=== PATIENT | female | born 1970 | race Caucasian/White ===

== ENCOUNTER → 2016-08-03 | Outpatient (REF) | payer BC ==
[~2016-08-03] MED LIST: /QUET10TA PO; ABIL1TAB5 PO; AMBI10TA PO; AMBI5TAB PO; ASPI1TAB PO; ATIV0.5T3 PO; ATIV1TAB7 PO; ATOR40TA PO; BIRTH CONTROL PILLS PO; CALC25TA PO; CALC600T21 PO; ESTR1TAB3 PO; FOLI1TAB86 PO; INVE6TAB2 PO; LATU20TA PO; LISI-542 PO; MULTCAP11 PO; PRE-TAB3 PO; PROV5TAB PO; Prenatal Vitamins PO; SERO200T PO; TRAZ25TA PO; VITA100T2 PO; VITAPRTA PO; VITMTA PO; ZOLO100T PO
== END ==
LOC: M SFHCWAGY 09:58
PROVIDERS: ATTEND Nurse Practitioner Women's Health
DX: Z12.4 Encounter for screening for malignant neoplasm of cervix (principal)

== ENCOUNTER → 2017-01-15 | Outpatient (CLI) | payer BC ==
[~2017-01-15] MED LIST changes: +ABIL10TA9 PO; -ABIL1TAB5 PO; -ATOR40TA PO; +ATOR40TA75 PO; -CALC600T21 PO; +CALC600T60 PO; -INVE6TAB2 PO; +INVE6TAB3 PO
--- NOTE | 2017-01-16 01:59 | REP ---
Clinical: Pain. Technique: AP, lateral, bilateral oblique and sunrise views of the right knee. Findings: Mild early osteoarthritic degenerative changes include cortical irregularity and subtle marginal spurring along the medial and lateral compartments as well as along the superior and lateral margins of the patella. [place] view demonstrates increased sclerosis along the posterior patellar surface along with minimal lateral compartment and patellofemoral joint space narrowing. No acute fracture dislocation. Small suprapatellar effusion cannot be excluded. Impression: Mild early osteoarthritic degenerative changes. Signed by Loyd Campbell MD 01/16/2017 01:51 A
== END ==
LOC: M RAD 17:24
PROVIDERS: ATTEND Family Medicine
DX: M17.12 Unilateral primary osteoarthritis, left knee (principal); M25.561 Pain in right knee

== ENCOUNTER 2017-03-24 19:43 | Emergency (ER) | payer BC ==
[2017-03-24] MEDS: AZITHROMYCIN 250 MG TAB PO ×2 (22:16→23:08)
[2017-03-24] MEDS: methylPREDNISolone INJ 125 MG/2 ML VIAL (J2930) IM (22:17)
[2017-03-24] MEDS: IPRATROPIUM 0.5MG/ALBUTEROL 2.5MG INH SOL UD 3ML (DUONEB)(J7620) NEB (22:56)
== END 2017-03-24 23:13 | disposition home or self-care (01) ==
LOC: M ED 19:43
DX: J18.9 Pneumonia, unspecified organism (principal); R05 Cough
CPT/HCPCS: J2930

== ENCOUNTER → 2017-10-18 | Outpatient (CLI) | payer BC | LOC: M WHC 11:23 | DX: Z12.31 Encounter for screening mammogram for malignant neoplasm of breast (principal); Z78.0 Asymptomatic menopausal state | CPT/HCPCS: 77067 ==

== ENCOUNTER → 2018-05-09 | Outpatient (REF) | payer BC ==
[~2018-05-09] MED LIST changes: +PROAAER10 INH; -PROV5TAB PO; +PROV5TAB2 PO; +SERO1TAB2 PO; +ZITHTAB PO
[2018-05-09 13:05] LABS: ALBUMIN 3.7 GM/DL (3.2-5.2); ALT/SGPT 22 U/L (12-78); BILIRUBIN,TOTAL 0.5 MG/DL (0.2-1.0); BLOOD UREA NITROGEN 11 MG/DL (7-18); CALCIUM LEVEL 8.8 MG/DL (8.5-10.1); CARBON DIOXIDE LEVEL 27 MEQ/L (21-32); CHLORIDE LEVEL 107 MEQ/L (98-107); CHOLESTEROL LEVEL 162 MG/DL (<200); CHOLESTEROL RISK RATIO 3.115 (<5); CREATININE FOR GFR 0.58 MG/DL (0.55-1.30); GLOMERULAR FILTRATION RATE > 60.0 (>51); GLUCOSE, FASTING 91 MG/DL (70-100); HDL CHOLESTEROL 52 MG/DL (>40); LDL CHOLESTEROL 97 MG/DL (<100); NON-HDL-C 110 MG/DL; POTASSIUM SERUM 5.1 MEQ/L (3.5-5.1); SODIUM LEVEL 141 MEQ/L (136-145); TOTAL PROTEIN 6.9 GM/DL (6.4-8.2); TRIGLYCERIDES LEVEL 67 MG/DL (<150)
[2018-05-09 13:52] LABS: HEMOGLOBIN A1c 5.5 %
== END ==
LOC: M LABDRAW1 09:38
PROVIDERS: ATTEND Student in an Organized Health Care Education/Training Program
DX: E78.00 Pure hypercholesterolemia, unspecified (principal); Z68.38 Body mass index [BMI] 38.0-38.9, adult

== ENCOUNTER → 2018-08-11 | Outpatient (CLI) | payer BC ==
[~2018-08-11] MED LIST changes: -/QUET10TA PO; -ASPI1TAB PO; +ASPI81TA26 PO; +SERO1TAB PO; +TRAZ1TAB6 PO; -TRAZ25TA PO
--- NOTE | 2018-08-11 19:03 | REP ---
LEFT KNEE, FIVE VIEWS: HISTORY: Knee pain. There is no acute fracture or dislocation. There is moderate narrowing of the medial knee joint space and mild narrowing of the lateral knee joint space and patellofemoral joint space. Osteophytes are present on the femur, tibia, and patella. IMPRESSION:Degenerative change as described above. Electronically Signed by Asif Medina MD 08/11/2018 07:09 P
== END ==
LOC: M WUC 18:09
PROVIDERS: ATTEND Physician Assistant
DX: M25.762 Osteophyte, left knee (principal); M17.12 Unilateral primary osteoarthritis, left knee; M25.562 Pain in left knee

== ENCOUNTER 2018-09-15 19:47 | Emergency (ER) | payer BC ==
[~2018-09-15] VITALS: Ht 167.6 cm; Wt 111.4 kg
[2018-09-15] MEDS ORDERED: PRED20TA PO (20:01)
[2018-09-15 20:58] LABS: HEMOGLOBIN 12.9 g/dl (12.0-15.5); MEAN CORPUSCULAR HEMOGLOBIN 28.6 pg (27.0-33.0); MEAN CORPUSCULAR HGB CONC 33.1 g/dl (32.0-36.5); MEAN CORPUSCULAR VOLUME 86.5 fl (80.0-96.0); PLATELET COUNT, AUTOMATED 211 10^3/uL (150-450); RED BLOOD COUNT 4.51 10^6/uL (4.00-5.40)
[2018-09-15 21:38] LABS: ACETAMINOPHEN LEVEL < 2.0 UG/ML (10.0-30.0); ALBUMIN 3.6 GM/DL (3.2-5.2); ALT/SGPT 26 U/L (12-78); BILIRUBIN,DIRECT 0.2 MG/DL (0.0-0.2); BILIRUBIN,TOTAL 0.6 MG/DL (0.2-1.0); BLOOD UREA NITROGEN 13 MG/DL (7-18); CALCIUM LEVEL 8.9 MG/DL (8.5-10.1); CARBON DIOXIDE LEVEL 25 MEQ/L (21-32); CHLORIDE LEVEL 106 MEQ/L (98-107); CREATININE FOR GFR 0.66 MG/DL (0.55-1.30); ETHYL ALCOHOL (ETHANOL) < 0.003 % (0.000-0.010); GLOMERULAR FILTRATION RATE > 60.0 (>51); GLUCOSE, FASTING 115 MG/DL (70-100); POTASSIUM SERUM 3.6 MEQ/L (3.5-5.1); SALICYLATE LEVEL < 1.7 MG/DL (5.0-30.0); SODIUM LEVEL 139 MEQ/L (136-145); TOTAL PROTEIN 7.1 GM/DL (6.4-8.2)
--- NOTE | 2018-09-15 23:06 | REPVR ---
EXAM: CT Head Without Contrast EXAM DATE/TIME: 09/15/2018 9:44 PM CLINICAL HISTORY: 48 years old, female; Signs and symptoms; Altered mental status/memory loss; Additional info: AMS TECHNIQUE: Imaging protocol: Axial computed tomography images of the head without contrast. Radiation optimization: All CT scans at this facility use at least one of these dose optimization techniques: automated exposure control; mA and/or kV adjustment per patient size (includes targeted exams where dose is matched to clinical indication); or iterative reconstruction. COMPARISON: MRI-Brain without Contrast 11/25/2012 3:07 PM FINDINGS: Brain: Normal. No hemorrhage. Unremarkable white matter. No mass effect. Ventricles: Normal. No ventriculomegaly. Bones/joints: Unremarkable. No acute fracture. Sinuses: Near-complete opacification of the sphenoid sinus. Mastoid air cells: Visualized mastoid air cells are well aerated. No mastoid effusion. Soft tissues: Unremarkable. IMPRESSION: No intracranial abnormality. Near-complete opacification of the right sphenoid sinus. Electronically signed by: Genesis Goodrich On 09/15/2018 23:06:29 PM
[2018-09-16 00:47] LABS: AMPHETAMINES LEVEL URINE NEGATIVE (NEGATIVE); BARBITURATES URINE NEGATIVE (NEGATIVE); BENZODIAZEPINES URINE NEGATIVE (NEGATIVE); CANNABINOIDS URINE NEGATIVE (NEGATIVE); COCAINE METABOLITE URINE NEGATIVE (NEGATIVE); METHADONE URINE NEGATIVE (NEGATIVE); OPIATES URINE NEGATIVE (NEGATIVE); PHENCYCLIDINE URINE NEGATIVE (NEGATIVE)
--- NOTE | 2018-09-16 06:04 | ECGEPIP ---
[facility] - ED Test Date: 2018-09-15 Pat Name: ANGELO MOROCHO Department: Room: - Gender: Female Order Packer: KK : [id number] Requested By: BEATRIZ Lira Order Number: [id number] Reading MD: Jose Sanders Measurements Intervals [place] Rate: 101 P: 58 NC: 162 QRS: 12 QRSD: 81 T: 36 QT: 336 QTc: 435 Interpretive Statements SINUS TACHYCARDIA RATE CHANGE COMPARED TO 12/30/14 Electronically Signed on 09-16-2018 6:04:16 EDT by Jose Sanders
[2018-09-16 08:45] VITALS: BP 136/64
== END 2018-09-16 08:51 ==
LOC: M ED 19:47
DX: F23 Brief psychotic disorder (principal); F25.9 Schizoaffective disorder, unspecified; Z79.899 Other long term (current) drug therapy; Z88.0 Allergy status to penicillin
CPT/HCPCS: 36415; 70450; 80048; 80076; 80307; 84443; 85027; 93005; 99284; G0480

== ENCOUNTER → 2018-11-11 | Outpatient (CLI) | payer BC ==
[~2018-11-11] MED LIST changes: +PRED20TA PO
--- NOTE | 2018-11-11 14:51 | REPMRS ---
Patient History The patient states she had a clinical breast exam in 10/2018. Patient is postmenopausal. No known family history of cancer. Took hormonal contraceptives for 9 years. Taking estrogen for 3 years 1 month. Taking progesterone for 3 years. Digital Woman Screen Mammo: November 11, 2018 - Exam #: [id number] Bilateral CC and MLO view(s) were taken. Technologist: Marilyn Davison, Technologist Prior study comparison: October 18, 2017, bilateral digital woman screen mammo performed at [facility]. August 03, 2015, digital woman screen mammo performed at [facility]. July 26, 2014, digital woman screen mammo performed at [facility]. FINDINGS: There are scattered fibroglandular densities. There has been no change in the appearance of the mammogram from the prior studies. There is a mild amount of scattered fibroglandular density which is fairly symmetric. There is no interval development of dominant mass, architectural distortion, or grouped microcalcification suggestive of malignancy. 3-D tomosynthesis shows no additional findings. Assessment: BI-RADS/ACR category 1 mammogram. Negative Mammogram. Recommendation Routine screening mammogram of both breasts in 1 year (for women over age 40). This patient's Lifetime Breast Cancer Risk is estimated at 9.6 %. This mammogram was interpreted with the aid of an FDA-approved computer-aided dectection system. Electronically Signed By: Yossi Leon MD 11/11/18 [id number]
== END ==
LOC: M WHC 13:41
PROVIDERS: ATTEND Nurse Practitioner Women's Health
DX: Z12.31 Encounter for screening mammogram for malignant neoplasm of breast (principal); Z78.0 Asymptomatic menopausal state; Z92.0 Personal history of contraception; Z92.23 Personal history of estrogen therapy; Z92.29 Personal history of other drug therapy

== ENCOUNTER → 2019-11-13 | Outpatient (CLI) | payer BC ==
[~2019-11-13] MED LIST changes: +SERO400T PO
--- NOTE | 2019-12-01 14:40 | REPMRS ---
Patient History The patient states she had a clinical breast exam in 10/2019. Patient is postmenopausal. No known family history of cancer. Took hormonal contraceptives for 9 years. Taking estrogen for 4 years 1 month. Taking progesterone for 4 years. Digital Woman Screen Mammo: November 13, 2019 - Exam #: [id number] Bilateral CC and MLO view(s) were taken. Technologist: Lawanda Benavidez, Technologist Prior study comparison: November 11, 2018, bilateral digital woman screen mammo performed at [facility]. October 18, 2017, bilateral digital woman screen mammo performed at [facility]. August 03, 2015, digital woman screen mammo performed at [facility]. FINDINGS: The breast tissue is almost entirely fat. The Volpara volumetric breast density category is: A. There has been no change in the appearance of the mammogram from the prior studies. There is no interval development of dominant mass, architectural distortion, or grouped microcalcification typical of malignancy. 3-D tomosynthesis shows no additional findings. Assessment: BI-RADS/ACR category 1 mammogram. Negative Mammogram. Recommendation Routine screening mammogram of both breasts in 1 year (for women over age 40). This patient's Lifetime Breast Cancer RIsk is estimated at 9.5 %. This mammogram was interpreted with the aid of an FDA-approved computer-aided dectection system. Electronically Signed By: Yossi Leon MD 12/01/19 [id number]
== END ==
LOC: M WHC 16:14
PROVIDERS: ATTEND Nurse Practitioner Women's Health
DX: Z12.31 Encounter for screening mammogram for malignant neoplasm of breast (principal); Z78.0 Asymptomatic menopausal state; Z79.899 Other long term (current) drug therapy

== ENCOUNTER → 2019-11-13 | Outpatient (REF) | payer BC | LOC: M SFHCWAGY 12:39 | PROVIDERS: ATTEND Nurse Practitioner Women's Health | DX: Z12.4 Encounter for screening for malignant neoplasm of cervix (principal) ==

== ENCOUNTER 2019-11-28 08:26 | Emergency (ER) | payer BC ==
[~2019-11-28] VITALS: Ht 167.6 cm; Wt 114.1 kg
[~2019-11-28 08:26] MED LIST changes: -SERO400T PO
[2019-11-28] MEDS ORDERED: SERO400T PO (08:35)
[2019-11-28 09:34] LABS: BASO % 0.6 % (0.0-1.0); EOS # 0.1 10^3/uL (0.0-0.5); EOS % 2.7 % (0.0-3.0); HEMATOCRIT 38.2 % (36.0-47.0); HEMOGLOBIN 12.5 g/dl (12.0-15.5); LYMPH # 1.1 10^3/uL (1.5-5.0); LYMPH % 23.3 % (24.0-44.0); MEAN CORPUSCULAR HEMOGLOBIN 28.7 pg (27.0-33.0); MEAN CORPUSCULAR HGB CONC 32.7 g/dl (32.0-36.5); MEAN CORPUSCULAR VOLUME 87.8 fl (80.0-96.0); MONO # 0.2 10^3/uL (0.0-0.8); MONO % 4.9 % (0.0-5.0); NEUTROPHILS # 3.3 10^3/uL (1.5-8.5); NEUTROPHILS % 68.1 % (36.0-66.0); PLATELET COUNT, AUTOMATED 187 10^3/uL (150-450); RED BLOOD COUNT 4.35 10^6/uL (4.00-5.40); WHITE BLOOD COUNT 4.9 10^3/uL (4.0-10.0)
[2019-11-28 09:49] LABS: BLOOD UREA NITROGEN 15 MG/DL (7-18); CALCIUM LEVEL 8.6 MG/DL (8.5-10.1); CARBON DIOXIDE LEVEL 27 MEQ/L (21-32); CHLORIDE LEVEL 112 MEQ/L (98-107); GLOMERULAR FILTRATION RATE > 60.0 (>51); GLUCOSE, FASTING 127 MG/DL (70-100); POTASSIUM SERUM 3.8 MEQ/L (3.5-5.1); SODIUM LEVEL 143 MEQ/L (136-145)
--- NOTE | 2019-11-28 09:51 | REPVR ---
PROCEDURE INFORMATION: Exam: US Duplex Left Lower Extremity Veins, Limited Exam date and time: 11/28/2019 9:39 AM Age: 49 years old Clinical indication: Pain; Leg, lower; Left; Additional info: L calf pain, R/O dvt TECHNIQUE: Imaging protocol: Real-time Duplex ultrasound of the Left Lower Extremity with 2-D bender scale, color Doppler flow and spectral waveform analysis with image documentation. Limited exam focused on the left lower extremity veins. COMPARISON: No relevant prior studies available. FINDINGS: Left deep veins: Unremarkable. The common femoral, femoral, popliteal and tibioperoneal trunk veins are patent without thrombus. Normal Doppler waveforms. Normal compressibility and/or augmentation response. Left superficial veins: Unremarkable. Saphenofemoral junction is patent without thrombus. Soft tissues: Unremarkable. IMPRESSION: No evidence of deep vein thrombosis in the left lower extremity. Electronically signed by: Terrell Taylor On 11/28/2019 09:51:38 AM
[2019-11-28 09:53] LABS: ERYTHROCYTE SEDIMENTATION RATE 29 mm/hr (0-30)
[2019-11-28 11:43] VITALS: BP 151/74
--- NOTE | 2019-12-29 09:07 | REP ---
LEFT KNEE RADIOGRAPH SERIES: HISTORY: Left knee pain. TECHNIQUE: AP, lateral, bilateral oblique and sunrise views of the left knee. FINDINGS: Advanced tricompartmental osteoarthritic degenerative changes are appreciated. No acute fracture or dislocation. Soft tissue swelling is suggested. A small suprapatellar effusion cannot be excluded. IMPRESSION: Advanced tricompartmental osteoarthritic degenerative changes and possible small effusion. No acute fracture or dislocation. MTDD
== END 2019-11-28 11:54 | disposition home or self-care (01) ==
LOC: M ED 08:26
DX: G56.03 Carpal tunnel syndrome, bilateral upper limbs (principal); M19.012 Primary osteoarthritis, left shoulder; R20.2 Paresthesia of skin; M17.12 Unilateral primary osteoarthritis, left knee; F31.9 Bipolar disorder, unspecified; F20.9 Schizophrenia, unspecified; Z88.0 Allergy status to penicillin; Z79.899 Other long term (current) drug therapy; Z79.890 Hormone replacement therapy

== ENCOUNTER 2020-04-18 19:40 | Emergency (ER) | payer BC ==
[~2020-04-18] VITALS: Ht 167.6 cm; Wt 114.2 kg
[~2020-04-18 19:40] MED LIST changes: -LISI-542 PO; +LISI-898 PO; +SERO400T PO
--- OUTSIDE RECORDS SUMMARY | 2020-04-18 19:48 | CCD ---
Author Author [facility] Organization [facility] Address Unknown Phone Unavailable Care Team Providers Care Supervisor Major Appliance Assembly Name Role Phone STEVEN, [email or web address] Unavailable Unavailable Re-disclosure Warning The records that you are about to access may contain information from federally-assisted alcohol or drug abuse programs. If such information is present, then the following federally mandated warning applies: This information has been disclosed to you from records protected by federal confidentiality rules (42 CFR part 2). The federal rules prohibit you from making any further disclosure of this information unless further disclosure is expressly permitted by the written consent of the person to whom it pertains or as otherwise permitted by 42 CFR part 2. A general authorization for the release of medical or other information is NOT sufficient for this purpose. The Federal rules restrict any use of the information to criminally investigate or prosecute any alcohol or drug abuse patient.The records that you are about to access may contain highly sensitive health information, the redisclosure of which is protected by Article 27-F of the [facility] Public Health law. If you continue you may have access to information: Regarding HIV / AIDS; Provided by facilities licensed or operated by the [facility] Office of Mental Health; or Provided by the [facility] Office for People With Developmental Disabilities. If such information is present, then the following [facility] mandated warning applies: This information has been disclosed to you from confidential records which are protected by state law. State law prohibits you from making any further disclosure of this information without the specific written consent of the person to whom it pertains, or as otherwise permitted by law. Any unauthorized further disclosure in violation of state law may result in a fine or fpc sentence or both. A general authorization for the release of medical or other information is NOT sufficient authorization for further disc losure. Family History Family Member Name Family Member Gender Family Member Status Date o f Status Description Data Source(s) Unknown Unknown Problem [facility]ENT ([facility]) Encounters Encounter Providers Location Date Indications Data Source(s ) Unknown [address] [facility], [facility] [address] 03/07/2020 12:00:00 AM EST eCW1 ([facility]ly [facility]) [facility] [address] [place] [phone] 11/13/2019 12:00:00 AM EDT eCW1 ([facility]) Outpatient Attender: [email or web address] [facility] 09/08/2019 07:43:52 PM EDT [facility] Insurance Providers Payer name Policy type / Coverage type Policy ID Covered democrat ID Covered democrat's relationship to morales Policy Morales Plan Information [place] 332/834 [id number] SP [id number] [place]/307 [id number] SP [id number] [place]LLUS BCBS B [id number] S PYN [id number] [place] 332/834 [id number] SP [id number] [place] 302/307 [id number] SP [id number] [place] BCBS B [id number] S PYN [id number] [place] 332/834 [id number] SP [id number] ANSI-Commercial [id number] BS [place] Commercial [id number] Self [id number] SELF PAY BLUE CROSS [id number] SP [id number] SELF PAY SELF PAY SELF PAY BLUE CROSS [id number] SP [id number] SELF PAY SELF PAY SELF PAY SELF PAY SELF PAY SELF PAY SELF PAY SELF PAY [place]/307 [id number] SP [id number] [place] 302/307 [id number] SP [id number] BCBS/Blue Card Commercial [id number] Self P [id number] BCBS/Blue Card Commercial [id number] Self P [id number] ANSI-Commercial [id number] ANSI-Commercial [id number] ANSI-Commercial [id number] ANSI-Commercial [id number] BCBS/Blue Card Commercial [id number] Self P [id number] EXCELLUS BCBS B [id number] S PYN [id number] [place] 302/307 [id number] SP [id number] EXCELLUS BCBS B [id number] S PYN [id number] [place] 332/834 [id number] SP [id number] [place] PPO 302/307 [id number] SP [id number] BCBS/Blue Card Commercial [id number] Self P [id number] [place] 130/630 [id number] SP [id number] [facility] [id number] SP [id number] VALUE OPTIONS (MVP) [id number] SP [id number] [facility] [id number] SP [id number] VALUE OPTIONS (MVP) [id number] SP [id number] [facility] [id number] SP [id number] [facility] [id number] SP [id number] [facility] [id number] SP [id number] VALUE OPTIONS (MVP) [id number] SP [id number] [facility] [id number] SP [id number] MVP H [id number] Self [id number] 400
--- OUTSIDE RECORDS SUMMARY | 2020-04-18 19:48 | CCD ---
Author Author [facility] Organization [facility] Address Unknown Phone Unavailable Care Team Providers Care Outcomes Manager Name Role Phone Ananda Quevedo Unavailable PROBLEMS Type Condition ICD9-CM Code MFV72-OV Code Onset Dates Condition S tatus SNOMED Code Notes Problem Major depression, recurrent F33.9 Active 6634 4007 Problem Surveillance of other previously prescribed cont raceptive method Z30.49 Active 714119507 Problem Other and unspecified hyperlipidemia E78.5 Act kalani 40233757 Problem Anxiety state F41.1 Active 176153536 Problem Obesity (BMI 30-39.9) E66.9 Active 257881027 Problem Essential hypertension I10 Active 66364569 Problem Symptomatic menopausal or female climacteric states N95.1 Active 06008326 Problem Mild dysplasia of cervix (SOL I) N87.0 Active 172721151 Problem Obesity (BMI 35.0-39.9 without comorbidity) E66.01 Active 342772908 Problem Stress at home F43.9 Active 128951933 Problem Hypercholesterolemia E78.00 Active 43220853 Problem Tendinitis of radial styloid M77.8 Active 217 90565 Problem Osteoarthritis of both knees, unspecified osteoarthritis t ype M17.0 Active 820797945754395 Problem Schizoaffective disorder, depressive type F25.1 Active 59722244 Problem Obesity, unspecified E66.9 Active 139753079 Problem Body mass index (BMI) of 38.0-38.9 in adult Z68.38 Active 542419253 Problem Bipolar depression F31.30 Active 478657561 Problem Body mass index 39.0-39.9, adult Z68.39 Active 078309641 ALLERGIES Allergen (clinical drug ingredient) Drug/Non Drug Allergy do cumented on EMR Reaction Allergy Type Onset Date Status Penicillin (For Allergies Use Only) Rash Drug Allerg y Active ENCOUNTERS from 1970 to 2020-03-30 Encounter Location Date Provider Diagnosis [facility] [place] [address] Mar, Ananda Quevedo IMMUNIZATIONS Vaccine Route Administration Date Status Influenza (6mo & up) Fluzone Unknown Jan 29, 2017 Ot ers Influenza (6mo & up) Fluzone Unknown Jan 12, 2016 Ot ers SOCIAL HISTORY Tobacco Use: Social History Observation Description Date Details (start date - stop date) Never Smoker Sex Assigned At : Social History Observation Description Sex Assigned At Unknown Education: Question Answer Notes Level of Education: High School Sexual Hx: Question Answer Notes Had sex in the last 12 months (vaginal, oral, or anal)? Yes LMP: post menopause Have you ever had an STD? No with Men only Use protection? No Alcohol Screening: Question Answer Notes Did you have a drink containing alcohol in the past year? No Points 0 Interpretation Negative BMI Care Goal Follow-Up Question Answer Notes Above Normal BMI Follow-Up Lifestyle education regarding t Tobacco Use: Question Answer Notes Are you a: never smoker never smoker REASON FOR REFERRAL No Information VITAL SIGNS No information MEDICATIONS Medication SIG (Take, Route, Frequency, Duration) Notes Start Da te End Date Status Provera 5 MG 1 tablet Orally Once a day for 30 Not-Taking Estrace 1 MG 1 tablet Orally daily for 30 day(s) Active Provera 5 MG 1 tablet Orally Once a day for 30 day(s) Active SEROquel 400 MG 1 tablet at bedtime Orally Once a day Active MedroxyPROGESTERone Acetate 10 MG 1 tablet with food Orally Once a da y Active Estrace 1 MG 1 tablet Orally daily for 30 Not-Taking Zoloft 100 MG 2 tablets Orally Once a day (Mental health) Active Lipitor 40 MG 1 tablet Orally qhs for 30 Active Omeprazole 20 MG 1 capsule Orally Once a day for 30 day(s) Sep, Not-Taking Multivitamins - 1 tablet Orally Once a day Active Meloxicam 15 MG 1 capsule Orally Once a day Not-Taking Estradiol 1 mg 1 tablet Orally Once a day Active Calcium 600 + D 600-400 MG-UNIT 1 tablet Orally Once a day for 30 day (s) Active LORazepam 1 MG 1 tablet at bedtime as needed Orally Once a day Not-Taking PROCEDURES No Information RESULTS No Results REASON FOR VISIT Colorectal Cancer Screening Referral MEDICAL (GENERAL) HISTORY Type Description Date Medical History SOL I, LSIL Medical History Depression Medical History Hypertension Medical History Hyperlipidemia Medical History Morbid Obesity Medical History Anxiety Medical History Schizoaffective disorder Medical History Major depressive disorder Medical History ASCVD 1.6% as of 05/2014 Surgical History eye surgery - for strabismus as baby Surgical History D&C x 2 - miscarriage 1993 Hospitalization History Depression with psychotic features 2 010 Hospitalization History mood disorder 11/2012 Hospitalization History depression 06/02/2014 Hospitalization History [facility] health 08/2018 Goals Section No Information Health Concerns No Information MEDICAL EQUIPMENT No Information MENTAL STATUS No Information FUNCTIONAL STATUS No Information ASSESSMENTS No Information PLAN OF TREATMENT Medication Medication Name Sig Start Date Stop Date Estrace 1 MG 1 tablet Orally daily for 30 day(s) Provera 5 MG 1 tablet Orally Once a day for 30 day(s) Lipitor 40 MG 1 tablet Orally qhs for 30 Insurance Providers Payer Name Payer Address Payer Phone Insured Name Patient Relati onship to Insured Coverage Start Date Coverage End Date BCBS [facility] [phone] [place] [id number] ANGELO MOROCHO
--- NOTE | 2020-04-18 21:48 | REPVR ---
PROCEDURE INFORMATION: Exam: US Duplex Left Lower Extremity Veins, Limited Exam date and time: 04/18/2020 9:33 PM Age: 49 years old Clinical indication: Pain; Leg, upper; Left; Additional info: Left leg pain x4 weeks TECHNIQUE: Imaging protocol: Real-time Duplex ultrasound of the Left Lower Extremity with 2-D bender scale, color Doppler flow and spectral waveform analysis with image documentation. Limited exam focused on the left lower extremity veins. COMPARISON: US Duplex, Ext,LOWER veins,unilat 11/28/2019 9:24 AM FINDINGS: Left deep veins: Unremarkable. The common femoral, femoral, proximal profunda femoral and popliteal veins are patent without thrombus. Normal Doppler waveforms. Normal compressibility and/or augmentation response. Left superficial veins: Unremarkable. Saphenofemoral junction is patent without thrombus. Soft tissues: Unremarkable. IMPRESSION: No evidence of deep vein thrombosis. Electronically signed by: Jan Esparza On 04/18/2020 21:47:21 PM
--- OUTSIDE RECORDS SUMMARY | 2020-04-18 21:53 | CCD ---
Author Author [facility] Organization [facility] Address Unknown Phone Unavailable Care Team Providers Care Detective Precinct Name Role Phone STEVEN, [email or web address] Unavailable Unavailable [...] by Article 27-F of the [facility] Public Health law. If you continue you may have access to information: Regarding HIV / AIDS; Provided by facilities licensed or operated by the [facility] Office of Mental Health; or Provided by the [facility] Office for People With Developmental Disabilities. If such information is present, then the following [facility] mandated warning applies: This information has [...] law may result in a fine or halfway sentence or both. A general authorization for the release of medical or other information is NOT sufficient authorization for further disc losure. Family History Family Member Name Family Member Gender Family Member Status Date o f Status Description Data Source(s) Unknown Unknown Problem MEDENT ([facility]) Encounters Encounter Providers Location Date Indications Data Source(s ) Unknown [address] [facility], [facility] [address] 03/07/2020 12:00:00 AM EST eCW1 ([facility]) [facility] [address] [place] [phone] 11/13/2019 12:00:00 AM EDT eCW1 ([facility]) Outpatient Attender: [email or web address] [facility] 09/08/2019 07:43:52 PM EDT [facility] Insurance Providers Payer name Policy type / Coverage type Policy ID Covered green party ID Covered green party's relationship to morales Policy Morales Plan Information [employer] [place] 332/834 [id number] SP [id number] [place] 302/307 [id number] SP [id number] EXCELLUS BCBS B [id number] S PYN [id number] [place] 332/834 [id number] SP [id number] [place] PPO 302/307 [id number] SP [id number] EXCELLUS BCBS B [id number] S PYN [id number] [place] 332/834 [id number] SP [id number] ANSI-Commercial [id number] BS [place] Commercial [id number] Self [id number] SELF PAY BLUE CROSS [id number] SP [id number] SELF PAY SELF PAY SELF PAY BLUE CROSS [id number] SP [id number] SELF PAY SELF PAY SELF PAY SELF PAY SELF PAY SELF PAY SELF PAY SELF PAY [place] PPO 302/307 [id number] SP [id number] [place] PPO 302/307 [id number] SP [id number] BCBS/Blue Card Commercial [id number] Self P [id number] BCBS/Blue Card Commercial [id number] Self P [id number] ANSI-Commercial [id number] ANSI-Commercial [id number] ANSI-Commercial [id number] ANSI-Commercial [id number] BCBS/Blue Card Commercial [id number] Self P [id number] EXCELLUS BCBS B [id number] S PYN [id number] [place] PPO 302/307 [id number] SP [id number] EXCELLUS BCBS B [id number] S PYN [id number] [place] 332/834 [id number] SP [id number] [place] PPO 302/307 [id number] SP [id number] BCBS/Blue Card Commercial [id number] Self P [id number] [place] 130/630 [id number] SP [id number] [facility] [id number] SP [id number] VALUE OPTIONS (MVP) [id number] SP [id number] [facility] [id number] SP [id number] [employer] OPTIONS (MVP) [id number] SP [id number] [facility] [id number] SP [id number] [facility] [id number] SP [id number] [facility] [id number] SP [id number] VALUE OPTIONS (MVP) [id number] SP [id number] [facility] [id number] SP [id number] MVP H [id number] Self [id number] 400
[2020-04-18 22:30] VITALS: BP 157/87
== END 2020-04-18 22:38 | disposition home or self-care (01) ==
LOC: M ED 19:40
DX: R22.42 Localized swelling, mass and lump, left lower limb (principal); I10 Essential (primary) hypertension; E78.5 Hyperlipidemia, unspecified; F41.9 Anxiety disorder, unspecified; Z79.899 Other long term (current) drug therapy; Z88.0 Allergy status to penicillin

== ENCOUNTER 2020-04-25 09:06 | Emergency (ER) | payer BC ==
[~2020-04-25] VITALS: Ht 167.6 cm; Wt 111.4 kg
[2020-04-25 10:01] LABS: BASO % 0.5 % (0.0-1.0); EOS # 0.1 10^3/uL (0.0-0.5); EOS % 1.2 % (0.0-3.0); HEMATOCRIT 39.4 % (36.0-47.0); HEMOGLOBIN 12.7 g/dl (12.0-15.5); LYMPH # 1.1 10^3/uL (1.5-5.0); LYMPH % 18.8 % (24.0-44.0); MEAN CORPUSCULAR HEMOGLOBIN 28.6 pg (27.0-33.0); MEAN CORPUSCULAR HGB CONC 32.2 g/dl (32.0-36.5); MEAN CORPUSCULAR VOLUME 88.7 fl (80.0-96.0); MONO # 0.3 10^3/uL (0.0-0.8); MONO % 4.6 % (0.0-5.0); NEUTROPHILS # 4.4 10^3/uL (1.5-8.5); NEUTROPHILS % 74.6 % (36.0-66.0); PLATELET COUNT, AUTOMATED 193 10^3/uL (150-450); RED BLOOD COUNT 4.44 10^6/uL (4.00-5.40); WHITE BLOOD COUNT 5.9 10^3/uL (4.0-10.0)
--- NOTE | 2020-04-25 10:12 | REP ---
INDICATION: CHEST PAIN COMPARISON: 03/24/2017 TECHNIQUE: Portable AP view of the chest FINDINGS: The mediastinum and cardiac silhouette are stable and within normal limits for portable technique. The lung padilla are clear without acute consolidation, effusion, or pneumothorax. Skeletal structures are intact. IMPRESSION: No acute cardiopulmonary process appreciated. <Electronically signed by Loyd Campbell > 04/25/20 [id number]
[2020-04-25 10:44] LABS: BLOOD UREA NITROGEN 10 MG/DL (7-18); CARBON DIOXIDE LEVEL 26 MEQ/L (21-32); CHLORIDE LEVEL 106 MEQ/L (98-107); CREATININE FOR GFR 0.67 MG/DL (0.55-1.30); GLOMERULAR FILTRATION RATE > 60.0 (>51); GLUCOSE, FASTING 143 MG/DL (70-100); POTASSIUM SERUM 4.7 MEQ/L (3.5-5.1); SODIUM LEVEL 142 MEQ/L (136-145)
[2020-04-25 10:45] LABS: ALT/SGPT 23 U/L (12-78); BILIRUBIN,DIRECT < 0.1 MG/DL (0.0-0.2); BILIRUBIN,TOTAL 0.4 MG/DL (0.2-1.0); CALCIUM LEVEL 9.4 MG/DL (8.5-10.1); CK-MB VALUE MASS < 1.0 NG/ML (<3.6); CPK CREATINE PHOSPHOKINASE 140 U/L (26-192); MB/CK RELATIVE INDEX 0.71 (< OR =4); NT-PRO BNP 62 PG/ML (<125); TOTAL PROTEIN 7.2 GM/DL (6.4-8.2); TROPONIN I < 0.02 NG/ML (< 0.10)
[2020-04-25] MEDS ORDERED: MECLIZINE 25 MG TABLET PO ONE (11:00)
[2020-04-25] MEDS ORDERED: NS 1,000 ML IV ONE (11:00)
--- NOTE | 2020-04-25 11:29 | REP ---
INDICATION: dizzy COMPARISON: 09/15/2018 TECHNIQUE: Axial noncontrast images from the skull base to the vertex with coronal reformations. This CT examination was performed using the following dose reduction techniques: Automated exposure control, adjustment of mA and/or kv according to the patient's size, and use of iterative reconstruction technique. FINDINGS: The ventricles, sulci, and cisterns are normal in position and appearance. [place]-white differentiation is maintained. No acute intracranial hemorrhage, mass/mass effect, pathology or trauma/injury. No evidence for acute infarction. No extra-axial fluid collection. Calvarium is intact. Paranasal sinuses and mastoid air cells are clear. IMPRESSION: Normal noncontrast head CT. No evidence for acute intracranial pathology or trauma/injury. <Electronically signed by Loyd Campbell > 04/25/20 [id number]
[2020-04-25 14:05] VITALS: BP 144/70
--- NOTE | 2020-04-27 14:21 | ECGEPIP ---
[facility] - ED Test Date: 2020-04-25 Pat Name: ANGELO MOROCHO Department: Room: - Gender: Female Radio Director: : 1970 Requested By: Hugo Vivas Order Number: [id number] Reading MD: Tesha Dalal Measurements Intervals [place] Rate: 72 P: 46 SC: 173 QRS: 5 QRSD: 78 T: 32 QT: 389 QTc: 427 Interpretive Statements SINUS RHYTHM LOW QRS VOLTAGE IN PRECORDIAL LEADS DECREASED RATE 09/15/18 Electronically Signed on 04-27-2020 14:20:51 EST by Tesha Dalal
== END 2020-04-25 14:07 | disposition home or self-care (01) ==
LOC: M ED 09:06
DX: R42 Dizziness and giddiness (principal); Z78.0 Asymptomatic menopausal state; Z88.0 Allergy status to penicillin

== ENCOUNTER → 2020-05-04 | Outpatient (CLI) | payer BC ==
--- NOTE | 2020-05-04 13:11 | REPPI ---
INDICATION: M25.562 PAIN IN LEFT KNEE COMPARISON: None. TECHNIQUE: AP, lateral, bilateral oblique and sunrise views. FINDINGS: Early advanced tricompartmental osteoarthritic degenerative changes include subchondral sclerosis, joint space narrowing, cortical irregularities and osteophytosis lateral view cannot exclude small effusion. No evidence for acute fracture or dislocation. IMPRESSION: Early advanced tricompartmental osteoarthritic degenerative changes. No obvious acute fracture or dislocation. <Electronically signed by Loyd Campbell > 05/04/20 [id number]
== END ==
LOC: M PLAIMG 09:11
PROVIDERS: ATTEND Student in an Organized Health Care Education/Training Program
DX: M17.12 Unilateral primary osteoarthritis, left knee (principal); M25.562 Pain in left knee

== ENCOUNTER → 2020-11-28 | Outpatient (REF) | payer BC | LOC: M SFHCWAGY 16:40 | PROVIDERS: ATTEND Nurse Practitioner Women's Health | DX: Z12.4 Encounter for screening for malignant neoplasm of cervix (principal) ==

== ENCOUNTER → 2020-11-29 | Outpatient (CLI) | payer BC ==
--- NOTE | 2020-11-29 14:46 | REPMRS ---
Patient History The patient states she had a clinical breast exam in October 2020. Patient is postmenopausal. No known family history of cancer. Took hormonal contraceptives for 9 years. Taking estrogen for 5 years 1 month. Taking progesterone for 5 years. Patient states no breast complaints today. Patient has signed MRS History Sheet. Digital Woman Screen Mammo: November 29, 2020 - Exam #: [id number] Bilateral CC and MLO view(s) were taken. Technologist: Lawanda Benavidez, Technologist Prior study comparison: November 13, 2019, bilateral digital woman screen mammo performed at [facility]. November 11, 2018, bilateral digital woman screen mammo performed at [facility]. October 18, 2017, bilateral digital woman screen mammo performed at [facility]. FINDINGS: The breast tissue is almost entirely fat. The Volpara volumetric breast density category is: A. There has been no change in the appearance of the mammogram from the prior studies. There is no interval development of dominant mass, architectural distortion, or grouped microcalcification typical of malignancy. 3-D tomosynthesis shows no additional findings. Assessment: BI-RADS/ACR category 1 mammogram. Negative Mammogram. Recommendation Routine screening mammogram of both breasts in 1 year (for women over age 40). This patient's [facility] Lifetime Breast Cancer RIsk is estimated at 9.3 %. This mammogram was interpreted with the aid of an FDA-approved computer-aided dectection system. Electronically Signed By: Yossi Leon MD 11/29/20 [id number]
== END ==
LOC: M WHC 13:03
PROVIDERS: ATTEND Nurse Practitioner Women's Health
DX: Z12.31 Encounter for screening mammogram for malignant neoplasm of breast (principal)

== ENCOUNTER 2021-07-09 09:06 | Emergency (ER) | payer BC ==
[~2021-07-09] VITALS: Ht 167.6 cm; Wt 116.0 kg
[~2021-07-09 09:06] MED LIST changes: -LISI-898 PO; +LISI5TAB11 PO
[2021-07-09] MEDS ORDERED: LORazepam 1 MG TAB PO STA (10:03)
[2021-07-09 10:34] LABS: BASO % 0.4 % (0.0-1.0); EOS # 0.1 10^3/uL (0.0-0.5); EOS % 1.7 % (0.0-3.0); HEMATOCRIT 38.4 % (36.0-47.0); HEMOGLOBIN 12.6 g/dl (12.0-15.5); LYMPH # 1.2 10^3/uL (1.5-5.0); LYMPH % 15.1 % (24.0-44.0); MEAN CORPUSCULAR HEMOGLOBIN 28.5 pg (27.0-33.0); MEAN CORPUSCULAR HGB CONC 32.8 g/dl (32.0-36.5); MEAN CORPUSCULAR VOLUME 86.9 fl (80.0-96.0); MONO # 0.4 10^3/uL (0.0-0.8); MONO % 4.5 % (2.0-8.0); NEUTROPHILS % 77.4 % (36.0-66.0); PLATELET COUNT, AUTOMATED 203 10^3/uL (150-450); RED BLOOD COUNT 4.42 10^6/uL (4.00-5.40); WHITE BLOOD COUNT 7.8 10^3/uL (4.0-10.0)
[2021-07-09 10:57] LABS: HCG, SERUM QUALITATIVE NEGATIVE (NEGATIVE)
[2021-07-09 11:04] LABS: ACETAMINOPHEN LEVEL < 2.0 UG/ML (10.0-30.0); ALT/SGPT 28 U/L (12-78); BILIRUBIN,DIRECT 0.1 MG/DL (0.0-0.2); BILIRUBIN,TOTAL 0.4 MG/DL (0.2-1.0); BLOOD UREA NITROGEN 11 MG/DL (7-18); CALCIUM LEVEL 8.8 MG/DL (8.5-10.1); CARBON DIOXIDE LEVEL 27 MEQ/L (21-32); CHLORIDE LEVEL 107 MEQ/L (98-107); CREATININE FOR GFR 0.71 MG/DL (0.55-1.30); ETHYL ALCOHOL (ETHANOL) 0.003 % (0.000-0.010); FREE T4 0.94 NG/DL (0.76-1.46); GLOMERULAR FILTRATION RATE > 60.0 (>51); GLUCOSE, FASTING 111 MG/DL (70-100); LIPASE 143 U/L (73-393); NT-PRO BNP 159 PG/ML (<125); POTASSIUM SERUM 3.8 MEQ/L (3.5-5.1); SALICYLATE LEVEL < 1.7 MG/DL (5.0-30.0); SODIUM LEVEL 143 MEQ/L (136-145); TOTAL PROTEIN 7.2 GM/DL (6.4-8.2)
[2021-07-09 12:40] LABS: AMPHETAMINES LEVEL URINE NEGATIVE (NEGATIVE); BARBITURATES URINE NEGATIVE (NEGATIVE); BENZODIAZEPINES URINE NEGATIVE (NEGATIVE); CANNABINOIDS URINE NEGATIVE (NEGATIVE); COCAINE METABOLITE URINE NEGATIVE (NEGATIVE); METHADONE URINE NEGATIVE (NEGATIVE); OPIATES URINE NEGATIVE (NEGATIVE); PHENCYCLIDINE URINE NEGATIVE (NEGATIVE)
[2021-07-09] MEDS ORDERED: BACT800T5 PO (13:29)
[2021-07-09] MEDS ORDERED: BACTRIM 160MG/800MG DS TAB PO ONE (13:30)
[2021-07-09 14:01] VITALS: BP 152/74
== END 2021-07-09 14:06 | disposition home or self-care (01) ==
LOC: M ED 09:06
DX: J32.9 Chronic sinusitis, unspecified (principal); E78.9 Disorder of lipoprotein metabolism, unspecified; F33.9 Major depressive disorder, recurrent, unspecified; F41.9 Anxiety disorder, unspecified; F20.9 Schizophrenia, unspecified; Z88.0 Allergy status to penicillin; Z79.899 Other long term (current) drug therapy

== ENCOUNTER → 2021-07-11 | Outpatient (CLI) | payer BC ==
[~2021-07-11] MED LIST changes: +BACT800T5 PO
== END ==
LOC: M PLAIMG 15:23
PROVIDERS: ATTEND Student in an Organized Health Care Education/Training Program
DX: M79.89 Other specified soft tissue disorders (principal)

== ENCOUNTER 2021-08-11 13:36 | Emergency (ER) | payer BC ==
[~2021-08-11] VITALS: Ht 167.6 cm; Wt 111.8 kg
[2021-08-11] MEDS ORDERED: LISI5TAB11 PO (14:27)
[2021-08-11 14:33] LABS: EOS % 0.4 % (0.0-3.0); HEMATOCRIT 36.4 % (36.0-47.0); HEMOGLOBIN 11.9 g/dl (12.0-15.5); LYMPH # 0.3 10^3/uL (1.5-5.0); LYMPH % 8.8 % (24.0-44.0); MEAN CORPUSCULAR HEMOGLOBIN 28.3 pg (27.0-33.0); MEAN CORPUSCULAR HGB CONC 32.7 g/dl (32.0-36.5); MEAN CORPUSCULAR VOLUME 86.7 fl (80.0-96.0); MONO # 0.4 10^3/uL (0.0-0.8); NEUTROPHILS # 2.2 10^3/uL (1.5-8.5); NEUTROPHILS % 77.4 % (36.0-66.0); PLATELET COUNT, AUTOMATED 155 10^3/uL (150-450); WHITE BLOOD COUNT 2.9 10^3/uL (4.0-10.0)
[2021-08-11] MEDS ORDERED: NS 1,000 ML IV ONE ×2 (14:45→15:35)
[2021-08-11 14:49] LABS: INR 0.98; PROTHROMBIN TIME 13.4 SECONDS (12.7-14.5)
[2021-08-11 14:50] LABS: PARTIAL THROMBOPLASTIN TIME 29.8 SECONDS (25.9-37.0)
[2021-08-11 15:02] LABS: BLOOD UREA NITROGEN 9 MG/DL (7-18); CARBON DIOXIDE LEVEL 27 MEQ/L (21-32); CHLORIDE LEVEL 108 MEQ/L (98-107); CREATININE FOR GFR 0.69 MG/DL (0.55-1.30); GLOMERULAR FILTRATION RATE > 60.0 (>51); GLUCOSE, FASTING 109 MG/DL (70-100); POTASSIUM SERUM 3.8 MEQ/L (3.5-5.1); SODIUM LEVEL 140 MEQ/L (136-145)
[2021-08-11 15:05] LABS: CK-MB VALUE MASS < 1.0 NG/ML (<3.6); CPK CREATINE PHOSPHOKINASE 62 U/L (26-192); MB/CK RELATIVE INDEX 1.61 (< OR =4)
[2021-08-11 17:01] LABS: RSV AMPLIFICATION NEGATIVE (NEGATIVE)
[2021-08-11 18:15] VITALS: BP 128/71
== END 2021-08-11 18:27 | disposition home or self-care (01) ==
LOC: M ED 13:36
DX: I95.1 Orthostatic hypotension (principal); U07.1 COVID-19; E78.5 Hyperlipidemia, unspecified

== ENCOUNTER 2021-08-12 05:24 | Emergency (ER) | payer BC ==
[~2021-08-12] VITALS: Ht 167.6 cm; Wt 113.6 kg
[2021-08-12] MEDS ORDERED: ACETAMINOPHEN 325 MG TAB PO ONE (07:30)
[2021-08-12] MEDS ORDERED: NS 1,000 ML IV ONE (10:20)
[2021-08-12 10:56] LABS: BASO % 0.3 % (0.0-1.0); EOS % 0.3 % (0.0-3.0); HEMATOCRIT 34.5 % (36.0-47.0); HEMOGLOBIN 11.3 g/dl (12.0-15.5); LYMPH # 0.8 10^3/uL (1.5-5.0); LYMPH % 23.4 % (24.0-44.0); MEAN CORPUSCULAR HEMOGLOBIN 28.9 pg (27.0-33.0); MEAN CORPUSCULAR HGB CONC 32.8 g/dl (32.0-36.5); MEAN CORPUSCULAR VOLUME 88.2 fl (80.0-96.0); MONO # 0.4 10^3/uL (0.0-0.8); MONO % 12.5 % (2.0-8.0); NEUTROPHILS # 2.1 10^3/uL (1.5-8.5); NEUTROPHILS % 62.9 % (36.0-66.0); PLATELET COUNT, AUTOMATED 125 10^3/uL (150-450); RED BLOOD COUNT 3.91 10^6/uL (4.00-5.40); WHITE BLOOD COUNT 3.4 10^3/uL (4.0-10.0)
[2021-08-12 11:20] LABS: BLOOD UREA NITROGEN 9 MG/DL (7-18); CALCIUM LEVEL 8.3 MG/DL (8.5-10.1); CARBON DIOXIDE LEVEL 22 MEQ/L (21-32); CHLORIDE LEVEL 113 MEQ/L (98-107); CREATININE FOR GFR 0.66 MG/DL (0.55-1.30); GLOMERULAR FILTRATION RATE > 60.0 (>51); GLUCOSE, FASTING 114 MG/DL (70-100); MAGNESIUM LEVEL 2.2 MG/DL (1.8-2.4); POTASSIUM SERUM 4.1 MEQ/L (3.5-5.1); SODIUM LEVEL 143 MEQ/L (136-145)
[2021-08-12 12:40] VITALS: BP 127/59
== END 2021-08-12 12:52 | disposition home or self-care (01) ==
LOC: M ED 05:24
DX: R42 Dizziness and giddiness (principal); U07.1 COVID-19; I10 Essential (primary) hypertension; E78.5 Hyperlipidemia, unspecified; Z88.0 Allergy status to penicillin

== ENCOUNTER 2023-03-08 14:40 | Emergency (ER) | payer BC ==
[~2023-03-08] VITALS: Ht 167.6 cm; Wt 109.5 kg
[~2023-03-08 14:40] MED LIST changes: +HYDR-3363 PO
[2023-03-08 14:41] VITALS: BP 176/87; TEMP 97.8; O2SAT 96
[2023-03-08] MEDS ORDERED: CARDCAP3 PO (15:27)
[2023-03-08] MEDS ORDERED: HYDR-3363 PO (19:36)
== END 2023-03-08 19:47 | disposition home or self-care (01) ==
LOC: M ED 14:40
DX: G47.00 Insomnia, unspecified (principal); E78.5 Hyperlipidemia, unspecified; F32.A Depression, unspecified; F31.9 Bipolar disorder, unspecified; F20.9 Schizophrenia, unspecified; E66.9 Obesity, unspecified; Z79.899 Other long term (current) drug therapy; Z88.0 Allergy status to penicillin

== ENCOUNTER 2023-04-15 16:40 | Emergency (ER) | payer BC ==
[~2023-04-15] VITALS: Ht 167.6 cm; Wt 109.1 kg
[~2023-04-15 16:40] MED LIST changes: +CARDCAP3 PO
[2023-04-15 16:42] VITALS: BP 171/99; TEMP 98.7; O2SAT 99
[2023-04-15] MEDS ORDERED: SERO50TA (17:17)
[2023-04-15] MEDS ORDERED: HYDR50TA70 (17:17)
== END 2023-04-15 18:05 | disposition left against medical advice (07) ==
LOC: M ED 16:40
DX: Z53.21 Procedure and treatment not carried out due to patient leaving prior to being seen by health care provider (principal)

== ENCOUNTER 2023-04-19 11:47 | Emergency (ER) | payer BC ==
[~2023-04-19] VITALS: Ht 167.6 cm; Wt 108.0 kg
[~2023-04-19 11:47] MED LIST changes: +HYDR50TA70; +SERO50TA
[2023-04-19] MEDS ORDERED: ONETAB20 PO (12:01)
[2023-04-19] MEDS ORDERED: CALC600T60 PO (12:01)
[2023-04-19 13:52] VITALS: BP 136/64; TEMP 98.1; O2SAT 98
== END 2023-04-19 13:55 | disposition home or self-care (01) ==
LOC: M ED 11:47
DX: H61.21 Impacted cerumen, right ear (principal); E78.5 Hyperlipidemia, unspecified; F41.9 Anxiety disorder, unspecified; F32.A Depression, unspecified; F20.9 Schizophrenia, unspecified; F31.9 Bipolar disorder, unspecified; E66.9 Obesity, unspecified

== ENCOUNTER 2023-04-20 12:48 | Emergency (ER) | payer BC ==
[~2023-04-20] VITALS: Ht 167.6 cm; Wt 108.0 kg
[~2023-04-20 12:48] MED LIST changes: +ONETAB20 PO
[2023-04-20 13:46] LABS: BASO % 0.3 % (0.0-1.0); EOS # 0.1 10^3/uL (0.0-0.5); EOS % 0.7 % (0.0-3.0); HEMOGLOBIN 13.4 g/dl (12.0-15.5); LYMPH # 1.2 10^3/uL (1.5-5.0); LYMPH % 17.8 % (24.0-44.0); MEAN CORPUSCULAR HEMOGLOBIN 29.2 pg (27.0-33.0); MEAN CORPUSCULAR HGB CONC 33.5 g/dl (32.0-36.5); MEAN CORPUSCULAR VOLUME 87.1 fl (80.0-96.0); MONO # 0.4 10^3/uL (0.0-0.8); MONO % 5.9 % (2.0-8.0); NEUTROPHILS # 5.2 10^3/uL (1.5-8.5); PLATELET COUNT, AUTOMATED 216 10^3/uL (150-450); RED BLOOD COUNT 4.59 10^6/uL (4.00-5.40)
[2023-04-20 14:02] LABS: RSV AMPLIFICATION NEGATIVE (NEGATIVE)
[2023-04-20 14:14] LABS: BLOOD UREA NITROGEN 20 MG/DL (9-23); CALCIUM LEVEL 9.1 MG/DL (8.5-10.1); CARBON DIOXIDE LEVEL 28 MMOL/L (20-31); CHLORIDE LEVEL 106 MMOL/L (98-107); CREATININE FOR GFR 0.75 MG/DL (0.55-1.30); GLOMERULAR FILTRATION RATE > 60.0 (>51); GLUCOSE, FASTING 126 MG/DL (60-100); POTASSIUM SERUM 3.5 MMOL/L (3.5-5.1); SODIUM LEVEL 141 MMOL/L (136-145)
[2023-04-20 14:55] VITALS: BP 148/68; O2SAT 99
[2023-04-20 15:25] VITALS: TEMP 97.6
== END 2023-04-20 15:27 | disposition home or self-care (01) ==
LOC: M ED 12:48
DX: Z71.1 Person with feared health complaint in whom no diagnosis is made (principal); F41.9 Anxiety disorder, unspecified; F32.A Depression, unspecified; I25.2 Old myocardial infarction; Z88.0 Allergy status to penicillin; Z79.899 Other long term (current) drug therapy; Z79.810 Long term (current) use of selective estrogen receptor modulators (SERMs)

== ENCOUNTER 2023-05-11 09:37 | Inpatient (IN) | payer BC ==
[~2023-05-11] VITALS: Ht 167.6 cm; Wt 107.9 kg
[~2023-05-11 09:37] MED LIST changes: -HYDR50TA70; +HYDR50TA70 PO; -SERO50TA; +SERO50TA PO
[2023-05-11] MEDS ORDERED: MED REC IN PROGRESS XX SCH (12:50)
[2023-05-11 13:20] LABS: HEMATOCRIT 43.9 % (36.0-47.0); HEMOGLOBIN 14.7 g/dl (12.0-15.5); MEAN CORPUSCULAR HEMOGLOBIN 28.7 pg (27.0-33.0); MEAN CORPUSCULAR HGB CONC 33.5 g/dl (32.0-36.5); MEAN CORPUSCULAR VOLUME 85.7 fl (80.0-96.0); PLATELET COUNT, AUTOMATED 231 10^3/uL (150-450); RED BLOOD COUNT 5.12 10^6/uL (4.00-5.40); WHITE BLOOD COUNT 9.7 10^3/uL (4.0-10.0)
[2023-05-11] MEDS ORDERED: HOME MED LIST COMPLETE! XX SCH (13:25)
[2023-05-11 13:29] LABS: ETHYL ALCOHOL (ETHANOL) < 0.003 % (0.000-0.010)
[2023-05-11 13:31] LABS: ALBUMIN 4.4 G/DL (3.2-5.2); ALKALINE PHOSPHATASE 95 U/L (46-116); ALT/SGPT 24 U/L (7.0-40); AST/SGOT 17 U/L (<34); BILIRUBIN,DIRECT 0.1 MG/DL (<0.4); BILIRUBIN,TOTAL 0.5 MG/DL (0.3-1.2); BLOOD UREA NITROGEN 10 MG/DL (9-23); CALCIUM LEVEL 9.8 MG/DL (8.5-10.1); CARBON DIOXIDE LEVEL 23 MMOL/L (20-31); CHLORIDE LEVEL 105 MMOL/L (98-107); CREATININE FOR GFR 0.53 MG/DL (0.55-1.30); GLOMERULAR FILTRATION RATE > 60.0 (>51); GLUCOSE, FASTING 107 MG/DL (60-100); POTASSIUM SERUM 3.9 MMOL/L (3.5-5.1); SALICYLATE LEVEL < 3.0 MG/DL (<30); SODIUM LEVEL 138 MMOL/L (136-145); TOTAL PROTEIN 7.6 G/DL (5.7-8.2)
[2023-05-11 13:33] LABS: THYROID STIMULATING HORMONE 3.499 uIU/ML (0.55-4.78)
[2023-05-11 13:38] LABS: AMPHETAMINES LEVEL URINE NEGATIVE (NEGATIVE); BARBITURATES URINE NEGATIVE (NEGATIVE)
[2023-05-11 13:39] LABS: CANNABINOIDS URINE NEGATIVE (NEGATIVE); COCAINE METABOLITE URINE NEGATIVE (NEGATIVE); METHADONE URINE NEGATIVE (NEGATIVE); OPIATES URINE NEGATIVE (NEGATIVE); PHENCYCLIDINE URINE NEGATIVE (NEGATIVE)
[2023-05-11 13:40] LABS: BENZODIAZEPINES URINE POSITIVE (NEGATIVE)
[2023-05-11] MEDS ORDERED: traZODone 50 MG TAB PO PRN (14:30)
[2023-05-11] MEDS ORDERED: IBUPROFEN 400MG TAB PO PRN (14:30)
[2023-05-11] MEDS ORDERED: MOM 30ML SUSPENSION UDC PO PRN (14:30)
[2023-05-11] MEDS ORDERED: MAALOX 30 ML SUSP *UDC PO PRN (14:30)
[2023-05-11] MEDS ORDERED: ACETAMINOPHEN TAB 650MG DOSE (2X325MG) PO PRN (14:30)
[2023-05-11 16:45] VITALS: TEMP 98.1; O2SAT 100
[2023-05-11] MEDS: diphenhydrAMINE 25MG CAP PO PRN (19:43)
[2023-05-12 06:31] VITALS: BP 144/84; TEMP 98.2; O2SAT 97
[2023-05-12] MEDS: SERTRALINE 100 MG TAB PO SCH (09:00)
[2023-05-12] MEDS: OLANZapine ORAL DISINTEGRATING TAB 5MG PO PRN (14:18)
[2023-05-12] MEDS: QUEtiapine FUMARATE 50MG TAB PO ONE (14:30)
[2023-05-12 15:35] VITALS: BP 164/90; TEMP 98.1; O2SAT 97
[2023-05-12] MEDS ORDERED: LORazepam 2 MG/ML 1ML VIAL As Ordered ONE (20:12)
[2023-05-12] MEDS: LORazepam 1 MG TAB PO ONE (20:14)
[2023-05-12] MEDS: LORazepam 2 MG/ML 1ML VIAL IM STA (20:17)
[2023-05-12 20:57] VITALS: BP 157/90; TEMP 99; O2SAT 100
[2023-05-12] MEDS: QUEtiapine FUMARATE 200 MG TAB PO SCH (21:00)
[2023-05-12] MEDS: QUEtiapine FUMARATE 50MG TAB PO SCH (21:00)
[2023-05-12 21:33] LABS: BLOOD UREA NITROGEN 19 MG/DL (9-23); CALCIUM LEVEL 9.4 MG/DL (8.5-10.1); CARBON DIOXIDE LEVEL 21 MMOL/L (20-31); CHLORIDE LEVEL 108 MMOL/L (98-107); CPK CREATINE PHOSPHOKINASE 104 U/L (34-145); CREATININE FOR GFR 0.59 MG/DL (0.55-1.30); GLOMERULAR FILTRATION RATE > 60.0 (>51); GLUCOSE, FASTING 123 MG/DL (60-100); POTASSIUM SERUM 3.8 MMOL/L (3.5-5.1); SODIUM LEVEL 141 MMOL/L (136-145)
[2023-05-12] MEDS: BENZTROPINE MESYLATE 2MG/2ML VIAL IM ONE (22:13)
[2023-05-13 01:11] LABS: APPEARANCE, URINE CLEAR (CLEAR); BACTERIA, URINE AUTO NEGATIVE (NEGATIVE); BILIRUBIN, URINE AUTO NEGATIVE (NEGATIVE); BLOOD, URINE BLOOD NEGATIVE (NEGATIVE); COLOR, URINE YELLOW (YELLOW); GLUCOSE, URINE (UA) AUTO NEGATIVE (NEGATIVE); KETONE, URINE AUTO NEGATIVE (NEGATIVE); LEUKOCYTE ESTERASE, URINE AUTO NEGATIVE (NEGATIVE); MUCUS, URINE SMALL (NEGATIVE); NITRITE, URINE AUTO NEGATIVE (NEGATIVE); PROTEIN, URINE AUTO NEGATIVE (NEGATIVE); RBC, URINE AUTO 2 /HPF (0-3); SQUAMOUS EPITHELIAL CELL UR AU 0 /HPF (0-6); UROBILINOGEN, URINE AUTO 0.2 mg/dL (0.0-2.0); WBC, URINE AUTO 0 /HPF (0-3)
[2023-05-13 01:16] LABS: ABG BASE EXCESS 0.4 (-2.0-2.0); ABG HCO3 23.8 MMOL/L (22.0-26.0); ABG O2 SATURATION 95.8 % (95.0-99.0); ABG PARTIAL PRESSURE CO2 35.1 mmHg (35.0-45.0); ABG PARTIAL PRESSURE O2 79.2 mmHg (75.0-100.0); ABG STANDARD HCO3 24.8 MMOL/L. (22.0-26.0); ABG TOTAL CO2 24.9 MMOL/L (22.0-29.0)
[2023-05-13 03:22] LABS: ALBUMIN 4.2 G/DL (3.2-5.2); ALKALINE PHOSPHATASE 88 U/L (46-116); ALT/SGPT 22 U/L (7.0-40); AST/SGOT 17 U/L (<34); BILIRUBIN,TOTAL 0.6 MG/DL (0.3-1.2); BLOOD UREA NITROGEN 21 MG/DL (9-23); CALCIUM LEVEL 9.2 MG/DL (8.5-10.1); CARBON DIOXIDE LEVEL 23 MMOL/L (20-31); CHLORIDE LEVEL 109 MMOL/L (98-107); CREATININE FOR GFR 0.57 MG/DL (0.55-1.30); GLOMERULAR FILTRATION RATE > 60.0 (>51); GLUCOSE, FASTING 112 MG/DL (60-100); POTASSIUM SERUM 3.9 MMOL/L (3.5-5.1); SODIUM LEVEL 143 MMOL/L (136-145); TOTAL PROTEIN 7.1 G/DL (5.7-8.2)
[2023-05-13 03:29] VITALS: BP 167/96; TEMP 98.9; O2SAT 98
== END 2023-05-13 05:24 | DRG 750 ==
LOC: M ED 09:37 → M ED INP 14:28 → M PSY 16:44 → M MSPAV 05-13 04:54
PROVIDERS: ADMIT Student in an Organized Health Care Education/Training Program; ATTEND Student in an Organized Health Care Education/Training Program
DX: F25.0 Schizoaffective disorder, bipolar type (principal); I10 Essential (primary) hypertension; R41.0 Disorientation, unspecified; Z88.0 Allergy status to penicillin; Z79.899 Other long term (current) drug therapy; E78.5 Hyperlipidemia, unspecified; F41.9 Anxiety disorder, unspecified; M17.0 Bilateral primary osteoarthritis of knee; N87.0 Mild cervical dysplasia; R33.9 Retention of urine, unspecified

== ENCOUNTER 2023-05-13 03:32 | Inpatient (IN) | payer BC ==
[2023-05-13] VITALS (8 sets, daily range): BP systolic 154–177; BP diastolic 88–103; TEMP 97.5–98.6; O2SAT 92–95
[2023-05-13] MEDS ORDERED: ONDANSETRON 4MG ORAL DISINTEGRATING TAB PO PRN (03:40)
[2023-05-13] MEDS ORDERED: ALBUTEROL 90 MCG/ACT 8GM HFA INHALER INH PRN (03:40)
[2023-05-13] MEDS: LORazepam 2 MG/ML 1ML VIAL IM STA (04:36)
[2023-05-13] MEDS: ENOXAPARIN 40MG/0.4ML SYRINGE (J1650 PER 10MG) SC SCH (08:49)
[2023-05-13] MEDS: LORazepam 2 MG/ML 1ML VIAL IV ONE (13:55)
[2023-05-13] MEDS: NS 1,000 ML IV ONE (13:55)
[2023-05-13] MEDS: LORazepam 2 MG/ML 1ML VIAL IM SCH (16:00)
[2023-05-13] MEDS: amLODIPine 5 MG TAB PO ONE (23:20)
[2023-05-14 01:58] VITALS: BP 162/92; TEMP 97.9; O2SAT 97
[2023-05-14] MEDS ORDERED: hydrALAZINE 20MG/ML 1ML VIAL IV PRN (02:10)
[2023-05-14] MEDS: **hydrALAZINE** 10 MG TAB PO ONE (02:36)
[2023-05-14 03:53] VITALS: BP 137/77
[2023-05-14 06:00] VITALS: BP 143/84; TEMP 97; O2SAT 97
[2023-05-14 06:47] LABS: BASO % 0.4 % (0.0-1.0); EOS % 0.4 % (0.0-3.0); HEMATOCRIT 41.2 % (36.0-47.0); HEMOGLOBIN 13.6 g/dl (12.0-15.5); LYMPH # 1.5 10^3/uL (1.5-5.0); LYMPH % 17.4 % (24.0-44.0); MEAN CORPUSCULAR HEMOGLOBIN 28.7 pg (27.0-33.0); MEAN CORPUSCULAR VOLUME 86.9 fl (80.0-96.0); MONO # 0.5 10^3/uL (0.0-0.8); MONO % 6.4 % (2.0-8.0); NEUTROPHILS # 6.4 10^3/uL (1.5-8.5); PLATELET COUNT, AUTOMATED 220 10^3/uL (150-450); RED BLOOD COUNT 4.74 10^6/uL (4.00-5.40); WHITE BLOOD COUNT 8.5 10^3/uL (4.0-10.0)
[2023-05-14 07:18] LABS: BLOOD UREA NITROGEN 19 MG/DL (9-23); CALCIUM LEVEL 8.9 MG/DL (8.5-10.1); CARBON DIOXIDE LEVEL 24 MMOL/L (20-31); CHLORIDE LEVEL 108 MMOL/L (98-107); CREATININE FOR GFR 0.57 MG/DL (0.55-1.30); GLOMERULAR FILTRATION RATE > 60.0 (>51); GLUCOSE, FASTING 104 MG/DL (60-100); POTASSIUM SERUM 3.6 MMOL/L (3.5-5.1); SODIUM LEVEL 141 MMOL/L (136-145)
[2023-05-14] MEDS ORDERED: amLODIPine 5 MG TAB PO SCH (09:00)
[2023-05-14] MEDS: amLODIPine 5 MG TAB PO SCH (09:45)
[2023-05-14 14:00] VITALS: BP 121/58; TEMP 98.4; O2SAT 98
[2023-05-14] MEDS: SERTRALINE 100 MG TAB PO ONE (17:25)
[2023-05-14] MEDS: LORazepam 1 MG TAB PO SCH (21:33)
[2023-05-14] MEDS: QUEtiapine FUMARATE 100 MG TAB PO SCH (21:34)
[2023-05-14] MEDS: ARIPiprazole 2 MG TAB PO SCH (21:34)
[2023-05-14 21:51] VITALS: BP 131/95; TEMP 98; O2SAT 97
[2023-05-15 06:00] VITALS: BP 137/87; TEMP 97.7; O2SAT 99
[2023-05-15 07:44] LABS: BASO % 0.5 % (0.0-1.0); EOS # 0.1 10^3/uL (0.0-0.5); EOS % 1.1 % (0.0-3.0); HEMATOCRIT 42.9 % (36.0-47.0); HEMOGLOBIN 14.2 g/dl (12.0-15.5); LYMPH # 1.4 10^3/uL (1.5-5.0); LYMPH % 24.4 % (24.0-44.0); MEAN CORPUSCULAR HEMOGLOBIN 29.2 pg (27.0-33.0); MEAN CORPUSCULAR HGB CONC 33.1 g/dl (32.0-36.5); MEAN CORPUSCULAR VOLUME 88.1 fl (80.0-96.0); MONO # 0.4 10^3/uL (0.0-0.8); MONO % 6.6 % (2.0-8.0); NEUTROPHILS # 3.7 10^3/uL (1.5-8.5); PLATELET COUNT, AUTOMATED 116 10^3/uL (150-450); RED BLOOD COUNT 4.87 10^6/uL (4.00-5.40); WHITE BLOOD COUNT 5.6 10^3/uL (4.0-10.0)
[2023-05-15 08:01] LABS: BLOOD UREA NITROGEN 21 MG/DL (9-23); CALCIUM LEVEL 8.6 MG/DL (8.5-10.1); CARBON DIOXIDE LEVEL 21 MMOL/L (20-31); CHLORIDE LEVEL 111 MMOL/L (98-107); CREATININE FOR GFR 0.51 MG/DL (0.55-1.30); GLOMERULAR FILTRATION RATE > 60.0 (>51); GLUCOSE, FASTING 102 MG/DL (60-100); POTASSIUM SERUM 4.1 MMOL/L (3.5-5.1); SODIUM LEVEL 141 MMOL/L (136-145)
[2023-05-15] MEDS ORDERED: VENTAER INH (09:05)
[2023-05-15] MEDS ORDERED: AMLO1TAB24 PO (09:05)
[2023-05-15] MEDS ORDERED: ABIL1TAB13 PO (09:05)
[2023-05-15] MEDS ORDERED: ATIV1TAB7 PO (09:05)
[2023-05-15] MEDS ORDERED: QUET100T2 PO (09:05)
[2023-05-15] MEDS ORDERED: ZOLO100T PO (09:05)
[2023-05-15 09:10] VITALS: BP 148/62
[2023-05-15] MEDS: SERTRALINE 100 MG TAB PO SCH (09:10)
== END 2023-05-15 13:49 | DRG 42 ==
LOC: M ED INP 03:38 → M MSPAV 04:54
PROVIDERS: ADMIT Internal Medicine; ATTEND Internal Medicine Nephrology
DX: G25.9 Extrapyramidal and movement disorder, unspecified (principal); M62.82 Rhabdomyolysis; F20.2 Catatonic schizophrenia; E66.01 Morbid (severe) obesity due to excess calories; R33.9 Retention of urine, unspecified; F32.A Depression, unspecified; I10 Essential (primary) hypertension; E78.5 Hyperlipidemia, unspecified; F41.9 Anxiety disorder, unspecified; M17.0 Bilateral primary osteoarthritis of knee; N87.0 Mild cervical dysplasia; F94.0 Selective mutism; Z88.0 Allergy status to penicillin; Z79.899 Other long term (current) drug therapy

== ENCOUNTER 2023-05-15 09:26 | Inpatient (IN) | payer BC ==
[~2023-05-15] VITALS: Ht 167.6 cm; Wt 105.7 kg
[~2023-05-15 09:26] MED LIST changes: +ABIL1TAB13 PO; +AMLO1TAB24 PO; +QUET100T2 PO; +VENTAER INH
[2023-05-15] MEDS ORDERED: MAALOX 30 ML SUSP *UDC PO PRN (10:30)
[2023-05-15] MEDS ORDERED: ACETAMINOPHEN TAB 650MG DOSE (2X325MG) PO PRN (10:30)
[2023-05-15] MEDS ORDERED: IBUPROFEN 400MG TAB PO PRN (10:30)
[2023-05-15] MEDS ORDERED: traZODone 50 MG TAB PO PRN (10:30)
[2023-05-15] MEDS ORDERED: diphenhydrAMINE 25MG CAP PO PRN (10:30)
[2023-05-15] MEDS ORDERED: MOM 30ML SUSPENSION UDC PO PRN (10:30)
[2023-05-15] MEDS ORDERED: OLANZapine ORAL DISINTEGRATING TAB 5MG PO PRN (10:30)
[2023-05-15 13:59] VITALS: BP 140/81; TEMP 96.4; O2SAT 99
[2023-05-15] MEDS ORDERED: HOME MED LIST COMPLETE! XX SCH (16:25)
[2023-05-15] MEDS: LORazepam 1 MG TAB PO SCH (17:01)
[2023-05-15] MEDS: ARIPiprazole 2 MG TAB PO SCH (21:58)
[2023-05-15] MEDS: QUEtiapine FUMARATE 100 MG TAB PO SCH (21:58)
[2023-05-15] MEDS: amLODIPine 5 MG TAB PO SCH (22:00)
[2023-05-16 06:45] VITALS: BP 133/80; TEMP 98.1; O2SAT 99
[2023-05-16] MEDS: NICOTINE 14 MG/24 HR TRANSDERMAL TD SCH (09:00)
[2023-05-16] MEDS: SERTRALINE 100 MG TAB PO SCH (09:31)
[2023-05-16] MEDS ORDERED: PILL CUTTER 1 EACH XX PRN (13:15)
[2023-05-16 17:59] VITALS: BP 137/83; TEMP 98.1; O2SAT 98
[2023-05-17 06:23] VITALS: BP 148/78; TEMP 97.5; O2SAT 98
[2023-05-17 07:02] LABS: CHOLESTEROL RISK RATIO 5.46 (<5); HDL CHOLESTEROL 42.6 MG/DL (>40); LDL CHOLESTEROL 168.8 MG/DL (<100); NON-HDL-C 190.4 MG/DL
[2023-05-17 08:00] VITALS: BP_SYST 121; BP_SYST 135; BP_SYST 138; BP_DIAS 69; BP_DIAS 77; BP_DIAS 81
[2023-05-17] MEDS: SERTRALINE 100 MG TAB PO SCH (09:00)
[2023-05-17] MEDS ORDERED: SERTRALINE HCL 50 MG TAB PO SCH (09:05)
[2023-05-17] MEDS: SERTRALINE HCL 50 MG TAB PO SCH (09:19)
[2023-05-17] MEDS: LORazepam 0.5 MG TAB PO SCH (15:59)
[2023-05-17 16:24] VITALS: BP 142/76; TEMP 97.9; O2SAT 99
[2023-05-18 06:47] VITALS: BP 121/66; TEMP 98.4; O2SAT 99
[2023-05-18 16:17] VITALS: BP 138/69; TEMP 97.5; O2SAT 99
[2023-05-19 06:29] VITALS: BP 117/56; TEMP 97.6; O2SAT 99
[2023-05-19 16:07] VITALS: BP 132/62; TEMP 98.6; O2SAT 100
[2023-05-20 05:31] VITALS: BP 113/58; TEMP 97.2; O2SAT 96
[2023-05-20 09:03] VITALS: BP 139/79
[2023-05-20] MEDS ORDERED: ABIL1TAB11 PO (11:38)
[2023-05-20] MEDS ORDERED: OLAN5ZYD PO (11:38)
[2023-05-20] MEDS ORDERED: SERT50TA29 PO (11:38)
[2023-05-20] MEDS ORDERED: NICO14PA TD (11:38)
[2023-05-20] MEDS ORDERED: ATIV1TAB10 PO (11:38)
[2023-05-20] MEDS ORDERED: QUET100T2 PO (11:38)
== END 2023-05-20 12:22 | disposition home or self-care (01) | DRG 753 ==
LOC: M PSY 13:50
PROVIDERS: ADMIT Student in an Organized Health Care Education/Training Program; ATTEND Student in an Organized Health Care Education/Training Program
DX: F31.9 Bipolar disorder, unspecified (principal); I10 Essential (primary) hypertension; E78.5 Hyperlipidemia, unspecified; F41.9 Anxiety disorder, unspecified; M17.0 Bilateral primary osteoarthritis of knee; N87.0 Mild cervical dysplasia; R42 Dizziness and giddiness; Z85.3 Personal history of malignant neoplasm of breast; Z79.899 Other long term (current) drug therapy; Z88.0 Allergy status to penicillin

== ENCOUNTER → 2023-06-12 | Outpatient (CLI) | payer BC ==
[~2023-06-12] MED LIST changes: +ABIL1TAB11 PO; +ATIV1TAB10 PO; +NICO14PA TD; +OLAN5ZYD PO; +SERT50TA29 PO
== END ==
LOC: M PLAIMG 08:31
PROVIDERS: ATTEND Student in an Organized Health Care Education/Training Program
DX: R01.1 Cardiac murmur, unspecified (principal)

== ENCOUNTER → 2023-07-25 | Outpatient (CLI) | payer BC ==
[2023-07-25 10:49] LABS: BASO % 0.5 % (0.0-1.0); EOS # 0.3 10^3/uL (0.0-0.5); EOS % 4.5 % (0.0-3.0); HEMATOCRIT 41.6 % (36.0-47.0); HEMOGLOBIN 13.5 g/dl (12.0-15.5); LYMPH # 1.3 10^3/uL (1.5-5.0); LYMPH % 20.9 % (24.0-44.0); MEAN CORPUSCULAR HEMOGLOBIN 28.4 pg (27.0-33.0); MEAN CORPUSCULAR HGB CONC 32.5 g/dl (32.0-36.5); MEAN CORPUSCULAR VOLUME 87.6 fl (80.0-96.0); MONO # 0.3 10^3/uL (0.0-0.8); MONO % 4.1 % (2.0-8.0); NEUTROPHILS # 4.4 10^3/uL (1.5-8.5); NEUTROPHILS % 69.7 % (36.0-66.0); PLATELET COUNT, AUTOMATED 192 10^3/uL (150-450); RED BLOOD COUNT 4.75 10^6/uL (4.00-5.40); WHITE BLOOD COUNT 6.3 10^3/uL (4.0-10.0)
[2023-07-25 11:14] LABS: HEMOGLOBIN A1c 5.1 % (4.0-6.0)
[2023-07-25 11:19] LABS: ALBUMIN 4.2 G/DL (3.2-5.2); ALKALINE PHOSPHATASE 90 U/L (46-116); ALT/SGPT 25 U/L (7.0-40); AST/SGOT 15 U/L (<34); BILIRUBIN,TOTAL 0.4 MG/DL (0.3-1.2); BLOOD UREA NITROGEN 14 MG/DL (9-23); CALCIUM LEVEL 9.6 MG/DL (8.5-10.1); CARBON DIOXIDE LEVEL 28 MMOL/L (20-31); CHLORIDE LEVEL 103 MMOL/L (98-107); CHOLESTEROL LEVEL 186 MG/DL (<200); CHOLESTEROL RISK RATIO 3.49 (<5); CREATININE FOR GFR 0.58 MG/DL (0.55-1.30); GLOMERULAR FILTRATION RATE > 60.0 (>51); GLUCOSE, FASTING 89 MG/DL (60-100); HDL CHOLESTEROL 53.2 MG/DL (>40); NON-HDL-C 132.8 MG/DL; POTASSIUM SERUM 4.1 MMOL/L (3.5-5.1); SODIUM LEVEL 140 MMOL/L (136-145); THYROID STIMULATING HORMONE 2.209 uIU/ML (0.55-4.78); TOTAL PROTEIN 6.9 G/DL (5.7-8.2); TRIGLYCERIDES LEVEL 174 MG/DL (<150)
[2023-07-25 11:20] LABS: FREE T4 0.94 NG/DL (0.89-1.76)
== END ==
LOC: M PLALAB 08:31
PROVIDERS: ATTEND Student in an Organized Health Care Education/Training Program
DX: Z68.39 Body mass index [BMI] 39.0-39.9, adult (principal)

== ENCOUNTER 2023-09-16 13:20 | Emergency (ER) | payer BC ==
[~2023-09-16] VITALS: Ht 167.6 cm; Wt 111.4 kg
[2023-09-16 17:04] VITALS: BP 142/64; TEMP 98.2; O2SAT 98; O2SAT 99
== END 2023-09-16 17:10 | disposition home or self-care (01) ==
LOC: M ED 13:20
DX: U07.1 COVID-19 (principal); F31.9 Bipolar disorder, unspecified; Z88.0 Allergy status to penicillin; Z79.52 Long term (current) use of systemic steroids; Z79.899 Other long term (current) drug therapy

== ENCOUNTER → 2023-10-07 | Outpatient (CLI) | payer BC | LOC: M SLEEP HO 10:42 | PROVIDERS: ATTEND Student in an Organized Health Care Education/Training Program | DX: I51.89 Other ill-defined heart diseases (principal) ==

== ENCOUNTER → 2023-10-28 | Outpatient (CLI) | payer BC ==
[2023-10-28 13:49] LABS: ALBUMIN 4.2 G/DL (3.2-5.2); ALKALINE PHOSPHATASE 95 U/L (46-116); ALT/SGPT 27 U/L (7.0-40); AST/SGOT 17 U/L (<34); BILIRUBIN,DIRECT 0.1 MG/DL (<0.4); BILIRUBIN,TOTAL 0.5 MG/DL (0.3-1.2); BLOOD UREA NITROGEN 13 MG/DL (9-23); CALCIUM LEVEL 9.1 MG/DL (8.5-10.1); CARBON DIOXIDE LEVEL 28 MMOL/L (20-31); CHLORIDE LEVEL 107 MMOL/L (98-107); CHOLESTEROL LEVEL 249 MG/DL (<200); CHOLESTEROL RISK RATIO 4.33 (<5); CREATININE FOR GFR 0.58 MG/DL (0.55-1.30); GLOMERULAR FILTRATION RATE > 60.0 (>51); GLUCOSE, FASTING 93 MG/DL (60-100); HDL CHOLESTEROL 57.4 MG/DL (>40); NON-HDL-C 191.6 MG/DL; PHOSPHORUS LEVEL 3.6 MG/DL (2.5-4.9); POTASSIUM SERUM 4.3 MMOL/L (3.5-5.1); SODIUM LEVEL 140 MMOL/L (136-145); TOTAL PROTEIN 6.8 G/DL (5.7-8.2); TRIGLYCERIDES LEVEL 103 MG/DL (<150)
[2023-10-28 13:50] LABS: BASO % 0.6 % (0.0-1.0); EOS # 0.2 10^3/uL (0.0-0.5); EOS % 2.3 % (0.0-3.0); HEMATOCRIT 40.6 % (36.0-47.0); HEMOGLOBIN 13.1 g/dl (12.0-15.5); LYMPH # 1.3 10^3/uL (1.5-5.0); LYMPH % 18.7 % (24.0-44.0); MEAN CORPUSCULAR HEMOGLOBIN 28.5 pg (27.0-33.0); MEAN CORPUSCULAR HGB CONC 32.3 g/dl (32.0-36.5); MEAN CORPUSCULAR VOLUME 88.5 fl (80.0-96.0); MONO # 0.4 10^3/uL (0.0-0.8); MONO % 5.3 % (2.0-8.0); NEUTROPHILS # 5.1 10^3/uL (1.5-8.5); NEUTROPHILS % 72.8 % (36.0-66.0); PLATELET COUNT, AUTOMATED 205 10^3/uL (150-450); RED BLOOD COUNT 4.59 10^6/uL (4.00-5.40)
[2023-10-28 14:07] LABS: HEMOGLOBIN A1c 5.3 % (4.0-6.0)
== END ==
LOC: M PLALAB 09:43
PROVIDERS: ATTEND Student in an Organized Health Care Education/Training Program
DX: Z00.00 Encounter for general adult medical examination without abnormal findings (principal)

== ENCOUNTER → 2023-12-12 | Outpatient (REF) | payer BC ==
[2023-12-14 13:46] LABS: HPV APTIMA Not Detected (Not Detected)
== END ==
LOC: M SFHCWAGY 13:13
PROVIDERS: ATTEND Nurse Practitioner Family
DX: Z12.4 Encounter for screening for malignant neoplasm of cervix (principal)
CPT/HCPCS: 87624; G0123

== ENCOUNTER → 2023-12-12 | Outpatient (CLI) | payer BC | LOC: M WHC 07:54 | PROVIDERS: ATTEND Nurse Practitioner Family | DX: Z12.31 Encounter for screening mammogram for malignant neoplasm of breast (principal); R92.313 Mammographic fatty tissue density, bilateral breasts ==

== ENCOUNTER 2024-04-26 14:19 | Emergency (ER) | payer BC ==
[~2024-04-26] VITALS: Ht 167.6 cm; Wt 114.2 kg
[2024-04-26 16:26] VITALS: BP 147/70; TEMP 97.8; O2SAT 98
== END 2024-04-26 16:28 | disposition home or self-care (01) ==
LOC: M ED 14:19
DX: R05.9 Cough, unspecified (principal); I10 Essential (primary) hypertension; Z88.0 Allergy status to penicillin; Z79.51 Long term (current) use of inhaled steroids; Z79.899 Other long term (current) drug therapy

== ENCOUNTER → 2024-05-07 | Outpatient (CLI) | payer BC ==
[2024-05-07 10:56] LABS: ALBUMIN 4.1 G/DL (3.2-5.2); BLOOD UREA NITROGEN 14 MG/DL (9-23); CALCIUM LEVEL 9.5 MG/DL (8.5-10.1); CARBON DIOXIDE LEVEL 25 MMOL/L (20-31); CHLORIDE LEVEL 109 MMOL/L (98-107); CREATININE FOR GFR 0.59 MG/DL (0.55-1.30); GLOMERULAR FILTRATION RATE > 60.0 (>51); GLUCOSE, FASTING 97 MG/DL (60-100); PHOSPHORUS LEVEL 3.8 MG/DL (2.5-4.9); SODIUM LEVEL 144 MMOL/L (136-145)
== END ==
LOC: M PLALAB 08:32
PROVIDERS: ATTEND Student in an Organized Health Care Education/Training Program
DX: I10 Essential (primary) hypertension (principal)

== ENCOUNTER → 2024-06-04 | Outpatient (CLI) | payer BC ==
[2024-06-04 11:18] LABS: ALBUMIN 4.1 G/DL (3.2-5.2); BLOOD UREA NITROGEN 14 MG/DL (9-23); CALCIUM LEVEL 9.3 MG/DL (8.5-10.1); CARBON DIOXIDE LEVEL 25 MMOL/L (20-31); CHLORIDE LEVEL 107 MMOL/L (98-107); CREATININE FOR GFR 0.54 MG/DL (0.55-1.30); GLOMERULAR FILTRATION RATE > 60.0 (>51); GLUCOSE, FASTING 96 MG/DL (60-100); POTASSIUM SERUM 4.3 MMOL/L (3.5-5.1); SODIUM LEVEL 143 MMOL/L (136-145)
== END ==
LOC: M PLALAB 09:16
PROVIDERS: ATTEND Student in an Organized Health Care Education/Training Program
DX: I10 Essential (primary) hypertension (principal)

== ENCOUNTER → 2024-06-10 | Outpatient (CLI) | payer BC ==
[2024-06-10 11:58] LABS: CHOLESTEROL RISK RATIO 3.22 (<5); HDL CHOLESTEROL 62.4 MG/DL (>40); LDL CHOLESTEROL 112.6 MG/DL (<100); NON-HDL-C 138.6 MG/DL
== END ==
LOC: M PLALAB 08:50
PROVIDERS: ATTEND Student in an Organized Health Care Education/Training Program
DX: E78.00 Pure hypercholesterolemia, unspecified (principal)

== ENCOUNTER → 2024-08-03 | Outpatient (CLI) | payer BC ==
[~2024-08-03] MED LIST changes: -AMBI10TA PO; -AMBI5TAB PO; +ZOLP-532 PO; +ZOLP-533 PO
[2024-08-03 11:49] LABS: CHOLESTEROL RISK RATIO 3.04 (<5); HDL CHOLESTEROL 53.8 MG/DL (>40); LDL CHOLESTEROL 87.4 MG/DL (<100); NON-HDL-C 110.2 MG/DL
== END ==
LOC: M PLALAB 08:18
PROVIDERS: ATTEND Student in an Organized Health Care Education/Training Program
DX: E78.00 Pure hypercholesterolemia, unspecified (principal)

== ENCOUNTER → 2025-03-19 | Outpatient (CLI) | payer BC ==
[2025-03-19 13:43] LABS: BASO # 0.0 10^3/uL (0.0-0.2); BASO % 0.6 % (0.0-1.0); EOS # 0.2 10^3/uL (0.0-0.5); EOS % 3.1 % (0.0-3.0); LYMPH # 1.4 10^3/uL (1.5-5.0); LYMPH % 21.3 % (24.0-44.0); MONO # 0.3 10^3/uL (0.0-0.8); MONO % 4.3 % (2.0-8.0); NEUTROPHILS # 4.6 10^3/uL (1.5-8.5); NEUTROPHILS % 70.4 % (36.0-66.0); PLATELET COUNT, AUTOMATED 205 10^3/uL (150-450)
[2025-03-19 13:44] LABS: ALT/SGPT 21 U/L (7.0-40); AST/SGOT 21 U/L (<34); CALCIUM LEVEL 9.5 MG/DL (8.5-10.1); CARBON DIOXIDE LEVEL 28 MMOL/L (20-31); CHLORIDE LEVEL 103 MMOL/L (98-107); CHOLESTEROL LEVEL 164 MG/DL (<200); CHOLESTEROL RISK RATIO 2.76 (<5); CREATININE FOR GFR 0.60 MG/DL (0.55-1.30); GLOMERULAR FILTRATION RATE > 90.0 (>51); LDL CHOLESTEROL 79.2 MG/DL (<100); NON-HDL-C 104.6 MG/DL; PHOSPHORUS LEVEL 3.3 MG/DL (2.5-4.9); POTASSIUM SERUM 4.1 MMOL/L (3.5-5.1); SODIUM LEVEL 143 MMOL/L (136-145); TRIGLYCERIDES LEVEL 127 MG/DL (<150)
[2025-03-19 13:47] LABS: TOTAL 25(OH) VITAMIN D 59.4 NG/ML (20.0-100.0)
[2025-03-19 14:05] LABS: ESTIMATED AVERAGE GLUCOSE 103.0 MG/DL (60-110)
== END ==
LOC: M PLALAB 09:29
PROVIDERS: ATTEND Student in an Organized Health Care Education/Training Program
DX: Z00.00 Encounter for general adult medical examination without abnormal findings (principal); E78.00 Pure hypercholesterolemia, unspecified